=== PATIENT | male | born 1945 | race Caucasian/White ===

== ENCOUNTER 2018-12-27 18:03 | Emergency (ER) | payer MEDICARE, BC ==
--- NOTE | 2018-12-27 18:55 | EDM.PDOC ---
ED HPI GENERAL MEDICAL PROBLEM - General Chief Complaint: Skin Complaint Stated Complaint: RT ARM PAIN Time Seen by Provider: 12/27/18 18:55 Source of Information: Reports: Patient History Limitations: Reports: No Limitations - History of Present Illness INITIAL COMMENTS - FREE TEXT/NARRATIVE: 73-year-old male presents to the ED with diffuse erythematous patches of thickened skin both hands and wrists as well as the volar medial aspect of his right forearm. Reports the rash been present for about 3 weeks and see any particular in the right side of his forearm. No open or oozing lesions. No signs of infection. States they are mildly burning and itching. Reports that his hands are detergent a good portion of the day due to work. He is starting to wear protective gloves last 2-3 weeks. Rash is been present for about 3 weeks. Previous similar problems. He reports the rash is on no other parts of his body.. Onset: Gradual Onset Date: 12/04/18 Duration: Week(s): Location: Reports: Upper Extremity, Left (Dorsal hand and medial aspect of the dorsal thumb and wrist.), Upper Extremity, Right (First and second fingers. Isabella PIP joints and webspaces of the finger as well as dorsal hand dorsal wrist below the thumb and therefore medial aspect of the right forearm. These are large patches) Quality: Reports: Burning Severity: Moderate Improves with: Reports: None Worsens with: Reports: None Context: Reports: Other. 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, Other (see below) - Related Data Allergies Allergy/AdvReac Type Severity Reaction Status Date / Time No Known Allergies Allergy Verified 12/27/18 18:18 Home Meds: Home Meds Betamethasone Dipropionate [Diprosone 0.05% Oint] 45 gm .XX DAILY #1 tube [Rx] predniSONE [Deltasone] 20 mg PO ASDIRECTED #15 tablet 12/27/18 [Rx] Past Medical History - Past Health History Medical/Surgical History: Denies Medical/Surgical History Oncologic (Cancer) History: Reports: Prostate Social & Family History - Family History Family Medical History: Noncontributory - Tobacco Use Smoking Status *Q: Never Smoker - Caffeine Use Caffeine Use: Reports: Coffee, Tea - Recreational Drug Use Recreational Drug Use: No - Living Situation & Occupation Living situation: Reports: Occupation: Retired ED ROS GENERAL - Review of Systems Review Of Systems: See Below Constitutional: Reports: No Symptoms HEENT: Reports: Glasses Respiratory: Reports: No Symptoms Cardiovascular: Reports: No Symptoms Endocrine: Reports: No Symptoms GI/Abdominal: Reports: No Symptoms : Reports: Other Musculoskeletal: Reports: Other (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) Skin: Reports: Erythema (He can patches of eczematous dermatitis both hands and medial aspect of right forearm.) Neurological: Reports: No Symptoms Psychiatric: Reports: No Symptoms Hematologic/Lymphatic: Reports: No Symptoms Immunologic: Reports: No Symptoms ED EXAM, SKIN/RASH Exam: See Below Exam Limited By: No Limitations General Appearance: Alert, WD/WN, No Apparent Distress Respiratory/Chest: No Respiratory Distress, Lungs Clear, Normal Breath Sounds, No Accessory Muscle Use, Chest Non-Tender Cardiovascular: Normal Peripheral Pulses, Regular Rate, Rhythm, No Edema, No Gallop, No Murmur, No Rub Peripheral Pulses: 2+: Posterior Tibial (L), Posterior Tibial (R), Dorsalis Pedis (L), Dorsalis Pedis (R) GI/Abdominal: Normal Bowel Sounds, Soft, Non-Tender, No Organomegaly, No Abnormal Bruit, No Mass, Pelvis Stable, Other (Mildly obese) Extremities: Normal Range of Motion, Non-Tender, No Pedal Edema Neurological: Alert, Oriented, CN II-XII Intact, Normal Cognition Skin: Other (His thickened erythematous plaques of eczematous dermatitis involving the dorsal aspect of his right hand particularly the second and third PIP joints and MCP joints dorsally. It also is in the webspaces between the fingers. He also has a patch over the dorsal aspect of his right hand and thumb. In a larger patch partially 5-6 cm in length and 5 cm in width over the mid volar aspect of his medial forearm. This is showing some scaling and some evidence of starting to break down the skin and reduce. No signs of infection. Examination reveals a contact dermatitis with excoriations from scratching) Course - Vital Signs Last Recorded V/S: Last Vital Signs Temp 36.4 C 12/27/18 18:15 Pulse 78 12/27/18 18:15 Resp 18 12/27/18 18:15 BP 143/92 H 12/27/18 18:15 Pulse Ox 98 12/27/18 18:15 - Orders/Labs/Meds Meds: Medications Discontinued Medications Generic Name Dose Route Start Last Admin Trade Name Christopher GRANDE Reason Stop Dose Admin Betamethasone Valerate 15 gm 12/27/18 19:01 12/27/18 19:18 Valisone 0.1% Crm TOP 12/27/18 19:02 Not Given ONETIME ONE Prednisone 20 mg 12/27/18 19:00 12/27/18 19:12 Prednisone PO 12/27/18 19:01 20 mg ONETIME ONE Administration - Radiology Interpretation Free Text/Narrative:: 73-year-old male presents the ED with increasing scaly itchy burning rash on both hands and medial aspect of his right forearm. States been present for about 3 weeks but seems to be getting worse and spreading particular lesion on his medial forearm. He states his hands were in water and detergents good portion of the day. He started wearing a protective nonlatex glove about 2 weeks ago. On examination he has a contact dermatitis likely due to detergents on both hands and right forearm. He'll be treated with prednisone 20 mg twice a day breakfast and supper for 5 days then once in the morning for another 5 days. Initial dose of Deltasone 20 was given in the ED. 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 Apply to rash once daily at bedtime until rash has cleared. 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 On examination this represents a contact dermatitis which means chemicals that been applied here skin repeatedly have caused a skin sensitization and allergic reaction which we call contact dermatitis. Is a form of eczema. Of course treatment is to try and stay away from the irritants of the skin as we discussed using a cotton glove inside a larger waterproof gloves since her hands are in contact with detergents this is likely the culprit. Treatment is Deltasone 20 mg twice daily breakfast and supper for 5 days and then once in the morning only for another 5 days. First tablets provided in the ED area and it takes at least 6 hours to begin to work. It'll probably 5 days before your rash first clear up. Second medicine is a topical ointment that I wanted to apply to the rash every night at bedtime until the rash is gone or if it reoccurs. Follow-up with her personal care physician if rash is not markedly improved in 10-12 days time
[2018-12-27] MEDS ORDERED: predniSONE 20 MG Tab PO ONE (19:00)
[2018-12-27] MEDS ORDERED: Betamethasone Valerate 0.1% Crm 15 GM Tube TOP ONE (19:01)
== END 2018-12-27 19:16 | disposition home or self-care (01) ==
LOC: JD.ED 18:03
DX: T49.2X1A Poisoning by local astringents and local detergents, accidental (unintentional), initial encounter (principal); L23.5 Allergic contact dermatitis due to other chemical products
CPT/HCPCS: 99282; A9270; 99283

== ENCOUNTER 2020-05-06 08:40 | Emergency (ER) | payer MEDICARE, BC ==
[2020-05-06] MEDS ORDERED: Sodium Chloride 0.9% 10 ML Syringe FLUSH PRN (09:00)
--- NOTE | 2020-05-06 09:06 | EDM.PDOC ---
ED HPI GENERAL MEDICAL PROBLEM - General Chief Complaint: General Stated Complaint: [facility] Time Seen by Provider: 05/06/20 08:47 Source of Information: Reports: Patient, EMS, RN Notes Reviewed - History of Present Illness INITIAL COMMENTS - FREE TEXT/NARRATIVE: 74 yr old male that experienced near syncope a short time ago at home. He was to the bathroom, had some mild diarrhea. As he walked back to the living room began to feel very "hot". He was lightheaded, lay down on the floor called 911. On their arrival he was nauseated but not vomiting, diaphoretic with a BP of about 70/40. They gave IV NS 500 ml bolus enroute to ED and also 4 mg zofran IV. He feels better on arrival to ED with a BP of 110. No chest pain or difficulty breathing. Has not recently been ill. Takes no meds other than vitamins. No hx of known medical problems. - Related Data Allergies Allergy/AdvReac Type Severity Reaction Status Date / Time No Known Allergies Allergy Verified 05/06/20 08:59 Home Meds: Home Meds . [No Known Home Meds] 05/06/20 [History] Past Medical History - Past Health History Medical/Surgical History: Denies Medical/Surgical History Oncologic (Cancer) History: Reports: Prostate Other Oncologic History: radiation of prostate Social & Family History - Family History Family Medical History: Noncontributory - Caffeine Use Caffeine Use: Reports: Coffee, Tea - Living Situation & Occupation Living situation: Reports: Occupation: Retired ED ROS GENERAL - Review of Systems Review Of Systems: See Below Constitutional: Reports: Diaphoresis. Denies: Fever, Chills HEENT: Reports: No Symptoms Respiratory: Denies: Shortness of Breath Cardiovascular: Denies: Chest Pain GI/Abdominal: Reports: Diarrhea, Nausea. Denies: Abdominal Pain, Hematochezia, Melena, Vomiting Musculoskeletal: Denies: Shoulder Pain, Arm Pain Skin: Reports: Diaphoresis Neurological: Reports: Dizziness, Weakness. Denies: Numbness, Tingling, Trouble Speaking ED EXAM, GENERAL - Physical Exam Exam: See Below General Appearance: Alert, No Apparent Distress Eye Exam: Bilateral Eye: PERRL Throat/Mouth: Normal Inspection, Normal Oropharynx Head: Atraumatic Neck: Supple Respiratory/Chest: No Respiratory Distress, Lungs Clear, Normal Breath Sounds, Chest Non-Tender Cardiovascular: Regular Rate, Rhythm GI/Abdominal: Soft, Non-Tender. No: Guarding Back Exam: No: CVA Tenderness (L), CVA Tenderness (R) Extremities: Normal Inspection, Normal Range of Motion. No: Leg Pain, Redness Neurological: Alert, Oriented, No Motor/Sensory Deficits Psychiatric: Normal Affect Skin Exam: Warm, Dry, Normal Color, No Rash EKG INTERPRETATION EKG Date: 05/06/20 Rhythm: NSR [place]: LAD-Left [place] Deviation P-Wave: Present QRS: Normal ST-T: Normal Course - Vital Signs Last Recorded V/S: Last Vital Signs Temp 97.9 F 05/06/20 08:48 Pulse 64 05/06/20 08:48 Resp 16 05/06/20 08:48 BP 113/70 05/06/20 08:48 Pulse Ox 98 05/06/20 08:48 - Orders/Labs/Meds Orders: Active Orders 24 hr Category Date Time Status Peripheral IV Insertion Adult [OM.PC] Stat Oth 05/06/20 09:00 Ordered Labs: Laboratory Tests 05/06/20 05/06/20 Range/Units 09:06 09:06 WBC 3.59 L (4.23-9.07) K/mm3 RBC 4.29 L (4.63-6.08) M/mm3 Hgb 12.8 L (13.7-17.5) gm/dl Hct 38.5 L (40.1-51.0) % MCV 89.7 (79.0-92.2) fl MCH 29.8 (25.7-32.2) pg MCHC 33.2 (32.2-35.5) g/dl RDW Std Deviation 41.7 (35.1-43.9) fL Plt Count 185 (163-337) K/mm3 MPV 9.1 L (9.4-12.3) fl Neut % (Auto) 51.5 (34.0-67.9) % Lymph % (Auto) 35.9 (21.8-53.1) % [place] % (Auto) 9.2 (5.3-12.2) % Eos % (Auto) 1.4 (0.8-7.0) Baso % (Auto) 1.7 H (0.1-1.2) % Neut # (Auto) 1.85 (1.78-5.38) K/mm3 Lymph # (Auto) 1.29 L (1.32-3.57) K/mm3 [place] # (Auto) 0.33 (0.30-0.82) K/mm3 Eos # (Auto) 0.05 (0.04-0.54) K/mm3 Baso # (Auto) 0.06 (0.01-0.08) K/mm3 Sodium 138 (136-145) mEq/L Potassium 3.5 (3.5-5.1) mEq/L Chloride 104 (98-107) mEq/L Carbon Dioxide 28 (21-32) mEq/L Anion Gap 9.5 (5-15) BUN 15 (7-18) mg/dL Creatinine 1.1 (0.7-1.3) mg/dL Est Cr Clr Drug Dosing 56.75 mL/min Estimated GFR (MDRD) > 60 (>60) mL/min BUN/Creatinine Ratio 13.6 L (14-18) Glucose 127 H (83-115) mg/dL Calcium 8.2 L (8.5-10.1) mg/dL Total Bilirubin 0.7 (0.2-1.0) mg/dL AST 19 (15-37) U/L ALT 30 (16-63) U/L Alkaline Phosphatase 64 (46-116) U/L Troponin I < 0.017 (0.00-0.056) ng/mL Total Protein 6.7 (6.4-8.2) g/dl Albumin 3.2 L (3.4-5.0) g/dl Globulin 3.5 gm/dL Albumin/Globulin Ratio 0.9 L (1-2) Meds: Medications Discontinued Medications Generic Name Dose Route Start Last Admin Trade Name Freq PRN Reason Stop Dose Admin Lactated Ringer's 1,000 mls @ 150 mls/hr 05/06/20 09:15 05/06/20 09:13 Ringers, Lactated IV 150 mls/hr ASDIRECTED BRIE Administration Sodium Chloride 10 ml 05/06/20 09:00 05/06/20 09:07 Saline Flush FLUSH 10 ml ASDIRECTED PRN Administration Keep Vein Open - Re-Assessments/Exams Free Text/Narrative Re-Assessment/Exam: 05/06/20 10:05 Labs are good, trop neg. EKG nl, sinus rythm, no ectopy. BP has not been running in the 120's. He still does not need to void, will bolus another 250 LR and than plan to discharge home. Departure - Departure Time of Disposition: 10:08 Disposition: Home, Self-Care 01 Condition: Fair Clinical Impression: Vasovagal near syncope Diarrhea Qualifiers: Diarrhea type: unspecified type Qualified Code(s): R19.7 - Diarrhea, unspecified - Discharge Information Instructions: Diarrhea, Adult, Food Choices to Help Relieve Diarrhea, Adult Referrals: Jose Gupta Jr, MD [Primary Care Provider] - Forms: ED Department Discharge Additional Instructions: Clear liquids for next few hours, than careful bland diet as tolerated. Sit or lie down immediately as discussed if you start feeling weak, warm, hot, or lightheaded at any time. Follow up clinic as needed. Return to ED as needed if symptoms worsening in any way. Sepsis Event Note (ED) - Evaluation Sepsis Screening Result: No Definite Risk - Focused Exam Vital Signs: Vital Signs Temp Pulse Resp BP Pulse Ox 05/06/20 08:48 97.9 F 64 16 113/70 98 - My Orders Last 24 Hours: My Active Orders 05/06/20 09:00 Peripheral IV Insertion Adult [OM.PC] Stat - Assessment/Plan Last 24 Hours: My Active Orders 05/06/20 09:00 Peripheral IV Insertion Adult [OM.PC] Stat
[2020-05-06] MEDS ORDERED: Lactated Ringers 1,000 ML IV SCH (09:15)
== END 2020-05-06 10:40 | disposition home or self-care (01) ==
LOC: JD.ED 08:40
DX: R55 Syncope and collapse (principal); R19.7 Diarrhea, unspecified
CPT/HCPCS: 36415; 80053; 84484; 85025; 93005; 96360; 99284; J7120; 93010; 99283

== ENCOUNTER 2022-07-16 02:46 | Emergency (ER) | payer MEDICARE, BC ==
[2022-07-16 04:37] LABS: ESTIMATED GFR 70 mL/min (>60)
[2022-07-16 04:54] LABS: CORONAVIRUS COVID-19 NAA NEGATIVE (NEGATIVE)
== END 2022-07-16 05:53 | disposition home or self-care (01) ==
LOC: JD.ED 02:46
DX: R53.81 Other malaise (principal); E66.9 Obesity, unspecified; Z68.30 Body mass index [BMI] 30.0-30.9, adult; F17.210 Nicotine dependence, cigarettes, uncomplicated; Z20.822 Contact with and (suspected) exposure to COVID-19
CPT/HCPCS: 0240U; 36415; 80053; 81001; 83735; 84443; 84484; 85007; 85027; 85379; 86140; 93005; 99283

== ENCOUNTER 2023-11-01 02:27 | Emergency (ER) | payer MEDICARE, BC ==
[2023-11-01] MEDS ORDERED: Sodium Chloride 0.9% 10 ML Syringe FLUSH PRN (02:54)
[2023-11-01 03:09] LABS: BASOPHILS PERCENT AUTO 0.5 % (0.0-1.0); EOSINOPHILS PERCENT AUTO 0.7 % (0.0-6.0); HEMATOCRIT 40.3 % (42.0-52.0); HEMOGLOBIN 13.6 gm/dl (14.0-18.0); IMMATURE GRAN ABSOLUTE AUTO 0.01 K/mm3 (0.00-0.05); IMMATURE GRAN PERCENT AUTO 0.2 % (0.0-0.4); LYMPHOCYTES ABSOLUTE AUTO 1.6 K/mm3 (1.0-4.8); LYMPHOCYTES PERCENT AUTO 39.4 % (24.0-44.0); MEAN CORPUSCULAR HEMOGLOBIN 30.5 pg (28.0-32.0); MEAN CORPUSCULAR HGB CONC 33.7 g/dl (32.0-36.0); MEAN CORPUSCULAR VOLUME 90.4 fl (83.0-99.0); MEAN PLATELET VOLUME 8.7 fl (9.4-12.4); MONOCYTES ABSOLUTE AUTO 0.4 K/mm3 (0.0-0.8); MONOCYTES PERCENT AUTO 10.6 % (0.0-8.0); NEUTROPHILS PERCENT AUTO 48.6 % (41.0-71.0); PLATELET COUNT,PLT 177 K/mm3 (150-400); RED BLOOD CELL COUNT 4.46 M/mm3 (4.52-5.90); WHITE BLOOD CELL COUNT,WBC 4.04 K/mm3 (3.9-11.3)
[2023-11-01 03:33] LABS: A/G RATIO 0.8 (1-2); ALANINE AMINOTRANSFERASE,ALT 30 U/L (16-63); ALBUMIN 3.3 g/dl (3.4-5.0); ALKALINE PHOSPHATASE 70 U/L (46-116); ANION GAP 11.7 (5-15); ASPARTATE AMNIOTRANSFERASE,AST 20 U/L (15-37); BILIRUBIN TOTAL 0.4 mg/dL (0.2-1.0); BLOOD UREA NITROGEN,BUN 15 mg/dL (7-18); BUN/CREATININE RATIO 16.7 (14-18); CARBON DIOXIDE,CO2 29 mEq/L (21-32); CHLORIDE,CL 102 mEq/L (98-107); CREATININE 0.9 mg/dL (0.7-1.3); ESTIMATED GFR 89 mL/min (>60); GLUCOSE RANDOM 114 mg/dL (70-99); POTASSIUM,K 3.7 mEq/L (3.5-5.1); PROTEIN TOTAL,TP 7.5 g/dl (6.4-8.2); SODIUM,NA 139 mEq/L (136-145); TROPONIN I HIGH SENSITIVITY 7 pg/mL (<=76)
[2023-11-01 04:24] LABS: APPEARANCE,URINE CLEAR (Clear); BILIRUBIN,URINE NEGATIVE (Negative); COLOR,URINE LIGHT YELLOW (Yellow); GLUCOSE,URINE NEGATIVE (Negative); KETONES,URINE NEGATIVE (Negative); LEUKOCYTE ESTERASE,URINE NEGATIVE (Negative); NITRITE,URINE NEGATIVE (Negative); OCCULT BLOOD,URINE 1+ (Negative); PROTEIN,URINE NEGATIVE (Negative); UROBILINOGEN,URINE 0.2 (0.2-1.0)
[2023-11-01 04:32] LABS: BACTERIA,URINE RARE /hpf (FEW); EPITHELIAL CELLS,URINE NOT SEEN /hpf (0-5); MUCUS,URINE RARE /hpf (FEW); WBC,URINE 0-5 /hpf (0-5)
== END 2023-11-01 04:36 | disposition home or self-care (01) ==
LOC: JD.ED 02:27
DX: Z71.1 Person with feared health complaint in whom no diagnosis is made (principal); E66.9 Obesity, unspecified
CPT/HCPCS: 36415; 71046; 71046-26; 80053; 81001; 83735; 84484; 85025; 93005; 99285

== ENCOUNTER 2024-11-21 05:38 | Emergency (ER) | payer MEDICARE, BC ==
[2024-11-21] MEDS: Dexamethasone 4 MG Tab PO ONE (06:11)
[2024-11-21 06:13] LABS: BASOPHILS PERCENT AUTO 0.4 % (0.0-1.0); EOSINOPHILS PERCENT AUTO 0.5 % (0.0-6.0); HEMATOCRIT 39.2 % (42.0-52.0); HEMOGLOBIN 13.5 gm/dl (14.0-18.0); IMMATURE GRAN ABSOLUTE AUTO 0.02 K/mm3 (0.00-0.05); IMMATURE GRAN PERCENT AUTO 0.3 % (0.0-0.4); LYMPHOCYTES PERCENT AUTO 13.7 % (24.0-44.0); MEAN CORPUSCULAR HEMOGLOBIN 30.5 pg (28.0-32.0); MEAN CORPUSCULAR HGB CONC 34.4 g/dl (32.0-36.0); MEAN CORPUSCULAR VOLUME 88.7 fl (83.0-99.0); MEAN PLATELET VOLUME 8.8 fl (9.4-12.4); MONOCYTES ABSOLUTE AUTO 0.7 K/mm3 (0.0-0.8); MONOCYTES PERCENT AUTO 8.7 % (0.0-8.0); NEUTROPHILS ABSOLUTE AUTO 5.7 K/mm3 (1.8-7.7); NEUTROPHILS PERCENT AUTO 76.4 % (41.0-71.0); PLATELET COUNT,PLT 196 K/mm3 (150-400); RED BLOOD CELL COUNT 4.42 M/mm3 (4.52-5.90); WHITE BLOOD CELL COUNT,WBC 7.45 K/mm3 (3.9-11.3)
[2024-11-21 06:39] LABS: A/G RATIO 0.9 (1-2); ALANINE AMINOTRANSFERASE,ALT 32 U/L (16-63); ALBUMIN 3.4 g/dl (3.4-5.0); ALKALINE PHOSPHATASE 80 U/L (46-116); ANION GAP 10.8 (5-15); ASPARTATE AMNIOTRANSFERASE,AST 20 U/L (15-37); BILIRUBIN TOTAL 0.4 mg/dL (0.2-1.0); BLOOD UREA NITROGEN,BUN 14 mg/dL (7-18); BUN/CREATININE RATIO 17.5 (14-18); CALCIUM 9.1 mg/dL (8.5-10.1); CARBON DIOXIDE,CO2 28 mEq/L (21-32); CHLORIDE,CL 102 mEq/L (98-107); CREATININE 0.8 mg/dL (0.7-1.3); ESTIMATED GFR 91 mL/min (>60); GLUCOSE RANDOM 93 mg/dL (70-99); POTASSIUM,K 3.8 mEq/L (3.5-5.1); PROTEIN TOTAL,TP 7.3 g/dl (6.4-8.2); SODIUM,NA 137 mEq/L (136-145)
[2024-11-21 06:51] LABS: TROPONIN I HIGH SENSITIVITY < 4 pg/mL (<=76)
[2024-11-21 06:59] LABS: CORONAVIRUS COVID-19 NAA NEGATIVE (NEGATIVE); INFLUENZA A NAA NEGATIVE (NEGATIVE); RESPIRATORY SYNCYTIAL VIR NAA NEGATIVE (NEGATIVE)
== END 2024-11-21 07:53 | disposition home or self-care (01) ==
LOC: JD.ED 05:38
DX: J02.9 Acute pharyngitis, unspecified (principal); R07.81 Pleurodynia; Z79.899 Other long term (current) drug therapy
CPT/HCPCS: 0241U; 36415; 71045; 80053; 84484; 85025; 87651; 93005; 99285; J8540; 93010; 99284